=== PATIENT | female | born 1995 | race African-American/Black ===

== ENCOUNTER 2017-11-25 12:49 | Emergency (ER) | payer BC, OTHER ==
[~2017-11-25] VITALS: Ht 160 cm; Wt 47.6 kg
[2017-11-25] MEDS ORDERED: IBUPROFEN 600600 M1 PO (15:20)
[2017-11-25] MEDS ORDERED: TIZANIDINE HCL4 MG PO (15:20)
== END 2017-11-25 15:52 ==
LOC: ER 12:49
DX: M25.562 Pain in left knee (principal); M25.522 Pain in left elbow

== ENCOUNTER 2018-08-26 18:57 | Emergency (ER) | payer OTHER ==
[~2018-08-26] VITALS: Ht 160 cm; Wt 49.4 kg
[~2018-08-26 18:57] MED LIST: IBUPROFEN 600600 M1 PO; TIZANIDINE HCL4 MG PO
[2018-08-26 19:14] LABS: URINE BILIRUBIN NEGATIVE (Negative); URINE BLOOD NEGATIVE (Negative); URINE CLARITY CLEAR; URINE COLOR YELLOW; URINE GLUCOSE-RANDOM* NEGATIVE (Negative); URINE KETONES 1+ (Negative); URINE LEUKOCYTES-REFLEX NEGATIVE (Negative); URINE NITRITE-REFLEX NEGATIVE (Negative); URINE PROTEIN (DIPSTICK) NEGATIVE (Negative); URINE SPECIFIC GRAVITY >= 1.030 (1.005-1.035)
[2018-08-26 20:32] LABS: ABSOLUTE NEUTROPHILS 5.8 thou/uL (1.4-8.2); BASOPHILS 0.4 % (0.0-2.0); EOSINOPHILS 1.2 % (0.0-3.0); HEMATOCRIT 38.3 % (37.0-47.0); HEMOGLOBIN 13.4 gm/dL (12.0-15.0); LYMPHOCYTES 27.2 % (24.0-44.0); MCH 31.9 pg (26.0-34.0); MCHC 34.9 g/dL (28.0-37.0); MCV 91.4 fL (80.0-100.0); MONOCYTES 5.2 % (1.0-8.0); PLATELET COUNT 273 thou/uL (150-400); RBC 4.19 mil/uL (4.20-5.00); RDW 12.7 % (10.5-14.5); WBC 8.8 thou/uL (4.0-11.0)
[2018-08-26 20:46] LABS: CALCIUM 9.6 mg/dL (8.5-10.1); CREATININE 0.6 mg/dL (0.6-1.0); POTASSIUM 3.8 mmol/L (3.5-5.1)
[2018-08-26] MEDS ORDERED: KEFLEX500 M1 PO (21:42)
[2018-08-26] MEDS ORDERED: IBUPROFEN 800800 M1 PO (21:42)
[2018-08-26 22:09] VITALS: BP 102/72
== END 2018-08-26 22:09 | disposition home or self-care (01) ==
LOC: ER 18:57
PROVIDERS: Nurse Practitioner Family
DX: N83.201 Unspecified ovarian cyst, right side (principal)